=== PATIENT | female | born 1990 | race African-American/Black ===

== ENCOUNTER → 2021-02-14 16:24 | Outpatient (CLI) | payer OTHER, SELFPAY ==
[2021-02-14 17:59] LABS: Prothrombin Time (Protime)PT. 12.8 SECONDS (11.7-14.9)
[2021-02-14 18:00] LABS: Partial Thromboplast Time 24.9 Seconds (24.1-36.2)
== END ==
PROVIDERS: Visit Provider Student in an Organized Health Care Education/Training Program
DX: N93.9 Abnormal uterine and vaginal bleeding, unspecified (principal)
CPT/HCPCS: 36415; 85610; 85730

== ENCOUNTER → 2022-05-03 | Outpatient (CLI) | payer OTHER, SELFPAY ==
[2022-05-04 11:25] LABS: HIV - WCH Non-Reactive (Nonreactive); Hepatitis B Surface Antibody Reactive; Hepatitis B Surface Antigen Non-Reactive (Nonreactive); Hepatitis C Antibody Non-Reactive (Nonreactive); Syphilis Antibodies Non-reactive
[2022-05-07 22:06] LABS: Chlamydia By Nucleic Acid AMP Negative (Negative)
[2022-05-09 16:18] LABS: Gonococcus By Nucleic Acid AMP Negative (Negative)
== END | disposition home or self-care (01) ==
PROVIDERS: Visit Provider Student in an Organized Health Care Education/Training Program
DX: Z11.3 Encounter for screening for infections with a predominantly sexual mode of transmission (principal)
CPT/HCPCS: 36415; 86703; 86706; 86780; 86803; 87340; 87491; 87591